=== PATIENT | male | born 1980 | race Caucasian/White ===

== ENCOUNTER 2018-11-24 20:57 | Emergency (ER) | payer BC, SELFPAY ==
[2018-11-24 20:57] VITALS: BP 144/85; PULSE 105; RESP 16; TEMP 36.1; O2SAT 95; BMI 22.4
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
[2018-11-24 22:30] VITALS: RESP 14
== END 2018-11-24 22:31 | disposition home or self-care (01) ==
PROVIDERS: Emergency Provider Emergency Medicine
DX: S40.012A Contusion of left shoulder, initial encounter (principal); R51 Headache; V89.2XXA Person injured in unspecified motor-vehicle accident, traffic, initial encounter; Y93.9 Activity, unspecified; Y92.9 Unspecified place or not applicable; F17.200 Nicotine dependence, unspecified, uncomplicated
CPT/HCPCS: 73030; 99282

== ENCOUNTER 2020-01-21 12:37 | Emergency (ER) | payer BC, SELFPAY ==
[2020-01-21 12:38] VITALS: BP 159/109; PULSE 112; RESP 16; TEMP 35.7; O2SAT 96; BMI 24.3
--- NOTE | 2020-01-21 12:58 | RAD_ITS ---
STUDY: X-RAY CHEST REASON FOR EXAM: Male, 39 years old. Hemoptysis x1 day, smoker about 1/2 pack per day. TECHNIQUE: PA and lateral views of the chest. COMPARISON: None. FINDINGS: Hyperinflation. There is no demonstrated pleural abnormality. Normal size heart. Normal mediastinum and maverick. Normal visualized pulmonary arteries. Normal visualized aortic arch and descending thoracic aorta. Normal visualized thoracic spine. Normal visualized ribs, clavicles, and shoulders. There is no demonstrated abnormality of the visualized soft tissue structures of the upper abdomen. RAD/Chest PA and Lateral IMPRESSION: Normal x-ray examination of the chest. Electronically Signed: Ananda Lim, at 13:50 EDT , Service support ,
--- NOTE | 2020-01-21 12:58 | ED.VIS.GEN ---
History of Present Illness Chief Complaint: Cough Narrative: This patient is a 39-year-old male who presents with hemoptysis. Patient states he has had a cough for about 3 to 4 weeks. Today he states his mucus tasted funny and he realized there was some blood in it. He states he has some mild chest tightness but that this may be related to his nerves. He complains of intermittent mild shortness of breath. No fevers. No congestion or rhinorrhea. No vomiting. No diarrhea. No sore throat. He is a smoker. He is not anticoagulated. Past Medical History - Allergies and Home Meds Allergies/Adverse Reactions: Allergies No Known Allergies Allergy (Verified 01/21/20 12:38) Primary Care Physician: Care Physician,No Primary [Primary Care Provider] - Past Medical History: None Smoking Status: Current every day smoker Review of Systems All systems negative except as indicated General: Denies: Fever Eyes: Denies: Visual changes - bilaterally Cardiovascular: Reports: Chest pain Respiratory: Reports: Dyspnea, Cough, Sputum Gastrointestinal: Denies: Abdominal pain, Nausea, Vomiting, Diarrhea Musculoskeletal: Denies: Myalgias, Arthralgias Skin: Denies: Rash Neurological: Denies: Headache Hematologic: Denies: Easy bruising, Easy bleeding Allergy: Denies: Uticaria Physical Exam Vital Signs/Narrative: Vital Signs Temp Pulse Resp BP Pulse Ox 01/21/20 12:38 96.3 F L 112 H 16 159/109 H 96 Inital Vital Signs reviewed: Yes General: Well nourished Head: Normocephalic Eyes: EOMI ENT: Moist mucous membranes Neck: Supple Cardiovascular: Regular rhythm, Tachycardia Respiratory: No distress, CTA bilaterally. Negative for: Rales, Rhonchi, Wheezing Abdomen: Soft, Nontender Extremities: Nontender, No edema Skin: Normal color Neurological: Alert Psychological: Normal affect Diagnostic/Tx/Re-eval Impressions Chest X-Ray 01/21/20 12:58 IMPRESSION: Normal x-ray examination of the chest. Electronically Signed: Ananda Lim, at 13:50 EDT , Service support , 01/21/20 12:58 CXR [Chest PA and Lateral] [RAD] Stat - Medical Decision Making Chest x-ray is normal. Patient was advised that the most common cause of hemoptysis is bronchitis. He was advised to follow-up as an outpatient and was given a referral to establish a primary care physician. He was instructed on specific signs and symptoms to monitor for and conditions which should prompt immediate return here to the emergency department for reevaluation. All questions answered bedside. Patient discharged. ED Disposition - Plan for ED Patient: Disposition: Home or Assisted Living Diagnosis: Hemoptysis Instructions: ED Hemoptysis Referrals: Care Physician,No Primary [Primary Care Provider] - Jordi Rivas MD [NON-STAFF] -
[2020-01-21 14:10] VITALS: BP 141/74; PULSE 102; RESP 15; O2SAT 98
--- NOTE | 2020-01-21 14:11 | ED.RN ---
pt given pamphlet about [facility] ecare and explained that resulted will be viewable 3-5 days from current date. also given information about possible covid-19 infection and recommendations provided by [facility] for home isolation. pt expressed understanding. michael conti rn [id number]
== END 2020-01-21 14:21 | disposition home or self-care (01) ==
PROVIDERS: Emergency Provider Emergency Medicine
DX: R04.2 Hemoptysis (principal); F17.200 Nicotine dependence, unspecified, uncomplicated
CPT/HCPCS: 71046; 87635; 99282; C9803; U0003

== ENCOUNTER → 2023-08-02 | Outpatient (CLI) | payer OTHER, SELFPAY ==
[2023-08-02 15:48] LABS: ALB/GLOB Ratio 1.2 RATIO (0.9-2.4); AST(SGOT) 20 U/L (15-37); Alanine Aminotransfer ALT/SGPT 29 U/L (16-61); Albumin, Serum 4.2 g/dL (3.2-5.0); Alkaline Phosphatase 99 U/L (45-117); Anion Gap 7 (5-15); BUN 11 mg/dL (7-18); BUN/Creat Ratio 11.4 RATIO (10-20); Calcium,Total 9.3 mg/dL (8.5-10.1); Chloride 104 mmol/L (98-107); Cholesterol 159 mg/dL (200); Creatinine, Serum 0.96 mg/dL (0.70-1.30); EST Glomerular Filtration Rate 90 mL/min (>60); Est Glom Filt Rate - Afr Amer 109 mL/min (>60); Globulin 3.6 g/dL (2.2-4.2); Glucose 101 mg/dL (74-106); High Density Lipoprotein 68 mg/dL; Potassium 4.1 mmol/L (3.5-5.1); Protein, Total 7.8 g/dL (6.4-8.2); Sodium Level 137 mmol/L (136-145); Triglycerides 84 mg/dL; Very Low Density Lipoprotein 17 mg/dL (5-40)
== END | disposition home or self-care (01) ==
PROVIDERS: Visit Provider Family Medicine
DX: Z00.00 Encounter for general adult medical examination without abnormal findings (principal)
CPT/HCPCS: 36415; 80053; 80061

== ENCOUNTER → 2023-10-06 | Outpatient (CLI) | payer OTHER, SELFPAY ==
--- NOTE | 2023-10-06 14:25 | VAS_PTH ---
PATIENT: MITCH TORRES LOC: [facility] U#:[id number] AGE/SX: 43/M ROOM: RE10/06/[address]: Dr. Ritchie Brown MD : 1980 BED: DIS: 10/06/2023 SPEC #: [id number] RECD: 10/06/23 15:06 STATUS: [place] REKindra #: [id number] NEPTALI: 10/06/23 14:[address]: Ritchie Brown DEPT: SURGICAL PATHOLOGY RECD BY: Ginette Perry ENTERED: 10/10/23 09:38 SP TYPE: VAS OTHR DR: Karuna Primary Care Phys Tissues: A - Vas deferens, NOS B - Vas deferens, NOS Procedures: Surgery Specimen Level II HEADER OPERATION: Bilateral partial vasectomy PRE-OP DIAGNOSIS: Sterilization TISSUE SUBMITTED: A- Right vas deferens, B- Left vas deferens MICROSCOPIC DIAGNOSIS A. A. Right vas deferens, segmental vasectomy: Complete cross-section of vas deferens with no pathologic change. B. Left vas deferens, segmental vasectomy: Complete cross-section of vas deferens with no pathologic change. AM: 10/11/2023 MICROSCOPIC DESCRIPTION Slides are reviewed. GROSS DESCRIPTION A - Received is one container designated right vas deferens. The specimen consists of a cylindrical segment of pink-manley soft tissue measuring 1.0 cm in length and 0.2 cm in maximum diameter. The specimen is serially sectioned and totally submitted in one cassette. B - Received is one container designated left vas deferens. The specimen consists of a cylindrical segment of pink-manley soft tissue measuring 1.0 cm in length and 0.2 cm in maximum diameter. The specimen is serially sectioned and totally submitted in one cassette. / AM/ 10/10/23 TC:4 CPT: 40101 x2
== END | disposition home or self-care (01) ==
LOC: LABSPEC 15:20
PROVIDERS: Referring Provider Surgery; Visit Provider Surgery
DX: Z30.2 Encounter for sterilization (principal)
CPT/HCPCS: 88302

== ENCOUNTER 2023-10-17 08:47 | Day surgery (SDC) | payer OTHER, SELFPAY ==
[2023-10-17] MEDS: Lactated Ringers 1,000 ML 15 ML IV (09:21)
[2023-10-17 09:22] VITALS: BP 146/99; PULSE 88; RESP 16; TEMP 36.9; O2SAT 98; BMI 26.6
--- NOTE | 2023-10-17 09:49 | H&P.OPEN ---
HPI - General HPI Narrative MITCH TORRES, is a 43 M who presents for screening colonoscopy. Patient has never had colonoscopy in the past. He denies abdominal pain or blood in stool. He denies family history of colon cancer. PFSH Medical History Wears glasses Alcohol use Smoker Home Medications ?Medication ?Instructions ?Recorded ?Last Taken ?Type cetirizine 10 mg tablet (Zyrtec) 10 mg PO DAILY PRN allergy symptoms 08/15/23 Unknown History multivitamin 1 tab PO DAILY 08/15/23 Unknown History Allergy/AdvReac Type Severity Reaction Status Date / Time No Known Allergies Allergy Verified 10/17/23 09:19 Family History Father Heart disease Hypertension Mother Heart disease Cancer Surgical History History of vasectomy Hx of LASIK Social History household members: spouse and children current occupational status: employed 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 Smoking Status: Light Smoker (<10/day) details: Occasional alcohol substance use type: does not use Past Medical/Surgical History Planned Operation Planned Operative Procedure(s): Colonoscopy-OA Previous Hospitalizations/Surgeries HX Hospitalizations: No Any Problems With Anesthesia: No You/Your Family Experience Fever (Hyperthermia) With Anes: No Cholinesterase deficiency: No Cardiovascular Hx Hypertension: No Respiratory Hx Sleep Apnea: No Hx Respiratory Tract Infection/Cold (presently): No Do You Snore Loudly (louder than talking or can be heard): Yes Do You Often Feel Tired/ Fatigued/ Sleepy Dring Daytime?: No Has Anyone Observed You Stop Breathing During Sleep?: No Result (for STOP score): Negative Smoking Status: Light Smoker (<10/day) Neurological Does patient have nerve stimulator: No Miscellaneous Recent Exposure to Contagious Disease: No Allergies No Known Allergies Allergy (Verified 10/17/23 09:19) Discharge Is Pt Admitted From a Residential, or a Usp: No After D/C, Where Do you Plan to Go: Return Home Vital Signs Vital Signs Vital Signs: 10/17/23 09:22 10/17/23 09:22 Temperature 98.4 F Temperature Source Temporal Pulse Rate 88 Respiratory Rate 16 Respiratory Pattern Normal Blood Pressure 146/99 H Blood Pressure Mean 114 Blood Pressure Source Monitor Blood Pressure Position Semi-Fowlers Blood Pressure Location Left Arm Pulse Ox 98 Oxygen Delivery Method Room Air Weight Weight: 196 lb 3.382 oz Body Mass Index (BMI) 26.6 Physical Exam Const alert and oriented x3 HEENT normocephalic Eyes PERRL Resp normal respiratory effort and normal air movement Cardio regular rate and regular rhythm GI soft to palpation, non-tender and non-distended Extremity normal to inspection Assessment & Plan Assessment/Plan (1) Encounter for screening for malignant neoplasm of colon: PLAN: I explained endoscopy in detail to the patient. I explained the risks including but not limited to stroke or heart attack with anesthesia, perforation of the GI tract, bleeding, infection. I explained that any of these could necessitate further emergency surgery. The patient understands and all questions were answered sufficiently. The patient wishes to proceed with procedure. (2) Encounter for sterilization: PLAN: The patient had vasectomy last week. I inspected his incisions and they are healing well. The sutures have fallen out. There is some mild ecchymosis with no erythema or pain. I we will provide the patient with specimen cups for semen analysis in 4 weeks. He does not have to come into tomorrow's postop exam. Ritchie Brown MD Pager: [facility] [address] [place] [address], [address] [place] [address] Office: Surgery Risks - Colonoscopy Risks Include but are not Limited To: Risks include but are not limited to: Bleeding, perforation requiring further surgery, inability to complete colonoscopy requiring barium enema.
[2023-10-17 10:13] VITALS: BP 119/78; BP 146/99; PULSE 68; RESP 16; TEMP 36; O2SAT 97
[2023-10-17 10:15] VITALS: BP 119/84; BP 146/99; PULSE 71; RESP 16; O2SAT 96
--- NOTE | 2023-10-17 10:18 | OP.COLON_ITS ---
Patient Name: Arcadio Corey Procedure Date: 10/17/2023 9:51 AM Date of : 1980 Age: 43 Procedure: Colonoscopy Indications: Screening for colorectal malignant neoplasm Providers: Ritchie Brown MD Medicines: Propofol per Anesthesia Patient Profile: This is a 43 year old male. Refer to note in patient chart for documentation of history and physical. Last Colonoscopy: none. The patient's first colonoscopy is today. Complications: No immediate complications. Procedure: Pre-Anesthesia Assessment: - Prior to the procedure, a History and Physical was performed, and patient medications and allergies were reviewed. The patient's tolerance of previous anesthesia was also reviewed. The risks and benefits of the procedure and the sedation options and risks were discussed with the patient. All questions were answered, and informed consent was obtained. Prior Anticoagulants: The patient has taken no anticoagulant or antiplatelet agents. After reviewing the risks and benefits, the patient was deemed in satisfactory condition to undergo the procedure. After I obtained informed consent, the scope was passed under direct vision. Throughout the procedure, the patient's blood pressure, pulse, and oxygen saturations were monitored continuously. The Colonoscope was introduced through the anus and advanced to the cecum, identified by appendiceal orifice and ileocecal valve. The colonoscopy was performed without difficulty. The patient tolerated the procedure well. The quality of the bowel preparation was good. The ileocecal valve, appendiceal orifice, and rectum were photographed. Scope In: 9:58:36 AM Scope Withdrawal Time 0 hours 5 minutes 50 seconds Scope Out: 10:08:30 AM Total Procedure Duration Time 0 hours 9 minutes 54 seconds Findings: The entire examined colon appeared normal on direct and retroflexion views. Impression: - The entire examined colon is normal on direct and retroflexion views. - No specimens collected. Recommendation: - Discharge patient to home. - Resume previous diet. - Continue present medications. - Repeat colonoscopy in 10 years for screening purposes. Procedure Code(s): --- Professional --- 12635, Colonoscopy, flexible; diagnostic, including collection of specimen(s) by brushing or washing, when performed (separate procedure) Diagnosis Code(s): --- Professional --- Z12.11, Encounter for screening for malignant neoplasm of colon CPT copyright 2021 [employer]. All rights reserved. The codes documented in this report are preliminary and upon hydrate thickener operator review may be revised to meet current compliance requirements. Ritchie Brown MD 10/17/2023 10:17:56 AM This report has been signed electronically. Number of Addenda: 0 Note Initiated On: 10/17/2023 9:51 AM
--- NOTE | 2023-10-17 10:18 | OP.CCLET_ITS ---
10/17/2023 No Primary Care Physician Re : Colonoscopy procedure for Arcadio Corey Dear Care Physician This procedure was performed on Tuesday, October 17, 2023. My impressions and recommendations are as follows: Impressions : - The entire examined colon is normal on direct and retroflexion views. - No specimens collected. Recommendations : - Discharge patient to home. - Resume previous diet. - Continue present medications. - Repeat colonoscopy in 10 years for screening purposes. My findings are described in the full procedure note, which is enclosed. If I can be of further assistance, please feel free to contact me at Doctor phone number(s): , Work: . Sincerely, Ritchie Brown MD 10/17/2023 10:17:56 AM This report has been signed electronically.
[2023-10-17 10:20] VITALS: BP 124/86; BP 146/99; PULSE 70; RESP 16; O2SAT 97
[2023-10-17 10:22] VITALS: BP 119/90; BP 146/99; PULSE 68; RESP 16; TEMP 36.1; O2SAT 97
[2023-10-17 10:33] VITALS: BP 146/99
== END 2023-10-17 10:48 | disposition home or self-care (01) ==
LOC: EN 08:48 → AC 08:49
PROVIDERS: PCP Family Medicine; Referring Provider Surgery; Visit Provider Surgery
PROC: 0DJD8ZZ Inspection of Lower Intestinal Tract, Via Natural or Artificial Opening Endoscopic (ICD-10-PCS; CPT 45378; principal; 2023-10-17 09:40)
DX: Z12.11 Encounter for screening for malignant neoplasm of colon (principal); F17.200 Nicotine dependence, unspecified, uncomplicated
CPT/HCPCS: 45378; J7120; J2405

== ENCOUNTER → 2023-12-13 | Outpatient (CLI) | payer OTHER, SELFPAY ==
--- NOTE | 2023-12-13 | CYSPIN_PTH ---
PATIENT: MITCH TORRES LOC: [facility] U#:[id number] AGE/SX: 43/M ROOM: RE12/13/[address]: Dr. Ritchie Brown MD : 1980 BED: DIS: 12/13/2023 SPEC #: [id number] RECD: 12/13/23 15:11 STATUS: [place] JAIMIE #: [id number] NEPTALI: 12/13/23 00:[address]: Ritchie Brown DEPT: CYTOLOGY RECD BY: Mara Peck ENTERED: 12/13/23 15:12 SP TYPE: CYSPIN FL OTHR DR: Dr. Dominick Gomez MD Tissues: Cytologic material, NOS Procedures: Pap Stain (control) Special Stain Group II Cytospin Fluid HEADER OPERATION: Post vasectomy PRE-OP DIAGNOSIS: Post vasectomy status TISSUE SUBMITTED: Seminal fluid for cytology DIAGNOSIS CYTOLOGY Seminal fluid for cytology (cytospin): No spermatozoa identified. AM/mr 12/14/2023 CYTOLOGY STUDY Slides are reviewed. CYTOLOGY GROSS Received is <1 ml of white mucoid fluid labeled with the patient's name and and designated per the requisition as Seminal fluid. Submitted for cytology preparation including cell block. Mr 12/13/2023 TC:5 CPT: 40864
== END | disposition home or self-care (01) ==
LOC: LABSPEC 14:45
PROVIDERS: PCP Family Medicine; Referring Provider Surgery; Visit Provider Surgery
DX: Z30.2 Encounter for sterilization (principal)
CPT/HCPCS: 88108; 88313; 89321

== ENCOUNTER 2024-01-30 16:30 | Outpatient (RCR) | payer OTHER, SELFPAY ==
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
--- NOTE | 2024-01-31 10:07 | HP.PTDCSUM ---
Discharge Summary D/C summary: It has been my pleasure to treat MITCH TORRES referred by SYEDA SÁNCHEZ, with the diagnosis of R shoulder Bankhart repair 11/13/23 for a total of 4 visit(s). Discharge Date: Please see the following information for a summary of their discharge status. Subjective Subjective: Pt reports feeling great, has been following his HEP. Pt reports he feels ready to be discharged from therapy. Pain R shoulder: Pain Intensity (Out of 10): 0 Overall Improvement % Improvement: 85 Objective Objective/Function: Pt I with HEP ROM: R shoulder flexion= 128 deg, abd= 137 deg , ER= 41 deg , IR= equal when compared bilat MMT: R shoulder flexion= 26 , abd= 21 , ER= 30 , IR= 28 #F Pt has no sleep limitations due to pain Goals Goal 1:: Decrease R shoulder pain x 50% to aid with sleep Goal Progress: Goal Met Goal 2:: Increase R shoulder flex and abd ROM x 50 degrees to aid with overhead lifting Goal Progress: Goal Met Goal 3:: Increase R UE strength to equal 95% of L UE to aid wth RTW Goal Progress: Goal Met Goal 4:: I with HEP Goal Progress: Goal Met Plan Plan: Discharged to HEP D/C Information d/c sentence: If there are questions or concerns regarding this patient's physical therapy, please feel free to call me at [phone]. Thank you for the referral of this patient. Sincerely, Mehul Mendez, PT, ATC Balance/Gait/Functional tests Balance/Special Test Scores Quick DASH Score: 6.8175 Improvement % Improvement: 85
== END 2024-01-30 19:00 | disposition home or self-care (01) ==
LOC: PT 16:30
PROVIDERS: PCP Family Medicine
DX: S43.084D Other dislocation of right shoulder joint, subsequent encounter (principal)
CPT/HCPCS: 97110; 97161; 97530

== ENCOUNTER → 2024-04-22 | Outpatient (CLI) | payer OTHER, SELFPAY ==
--- NOTE | 2024-04-22 | SEP_PTH ---
PATIENT: MITCH TORRES LOC: [facility] U#:[id number] AGE/SX: 43/M ROOM: RE04/22/[address]: Dr. Troy Ames MD : 1980 BED: DIS: 04/22/2024 SPEC #: [id number] RECD: 04/22/24 09:45 STATUS: [place] REKindra #: [id number] NEPTALI: 04/22/24 00:[address]: Troy Ames DEPT: SURGICAL PATHOLOGY RECD BY: Alfredo Mariscal ENTERED: 04/23/24 09:45 SP TYPE: SEPTUM OTHR DR: Dr. Dominick Gomez MD Tissues: Nasal septum, NOS Procedures: Decalcification bone/plaque Surgery Specimen Level III HEADER OPERATION: Septoplasty, submucosal resection of inferior turbinates, bilateral PRE-OP DIAGNOSIS: Nasal congestion, hypertrophy of nasal turbinates, deviated nasal septum TISSUE SUBMITTED: Nasal septum MICROSCOPIC DIAGNOSIS Nasal septum, septoplasty: Fragments of cartilaginous tissue and bone consistent with nasal septal tissue. PW. 04/26/2024 MICROSCOPIC DESCRIPTION Slides are reviewed. GROSS DESCRIPTION Received in fixative is one container labeled with the patient's name and designated Nasal septum. The specimen consists of multiple irregular fragments of light manley bone and cartilage measuring in aggregate 3.0 x 0.2cm. The specimen is submitted in its entirety in one cassette after decalcification. Rhett 04/23/2024 TC:5 CPT:15023,60504
== END | disposition home or self-care (01) ==
LOC: LABSPEC 16:14
PROVIDERS: PCP Family Medicine; Referring Provider Otolaryngology; Visit Provider Otolaryngology
DX: J34.3 Hypertrophy of nasal turbinates (principal); J34.2 Deviated nasal septum; R09.81 Nasal congestion
CPT/HCPCS: 88304; 88311